=== PATIENT | female | born 1940 | race Caucasian/White ===

== ENCOUNTER → 2024-09-27 | Outpatient (CLI) | payer MEDICARE, OTHER, SELFPAY ==
--- NOTE | 2024-09-27 10:30 | XR_ITS ---
EXAMINATION: Cervical spine, 5 views Technique: Cervical spine AP, AP odontoid, lateral, bilateral obliques, 5 views Exam date and time: September 27, 2024 1119 hours INDICATIONS: Neck pain beginning one month ago radiating to the left arm FINDINGS: Minimal anterolisthesis C4 on C3, 1 mm No cervical fracture. Intact odontoid. 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
== END | disposition home or self-care (01) ==
LOC: CDIM 10:06
PROVIDERS: PCP Internal Medicine; Referring Provider Internal Medicine; Visit Provider Internal Medicine
DX: M50.31 Other cervical disc degeneration, high cervical region (principal)
CPT/HCPCS: 72050